=== PATIENT | male | born 1985 | race Caucasian/White ===

== ENCOUNTER 2020-10-26 11:31 | Emergency (ER) | payer OTHER | END 2020-10-26 12:15 | disposition home or self-care (01) | LOC: ER1 11:31 | DX: S61.412A Laceration without foreign body of left hand, initial encounter (principal); W26.8XXA Contact with other sharp object(s), not elsewhere classified, initial encounter | CPT/HCPCS: 12001; 90715; 99283 ==

== ENCOUNTER 2020-11-28 13:47 | Emergency (ER) | payer OTHER ==
[~2020-11-28] VITALS: Ht 175.3 cm; Wt 149.7 kg
[2020-11-28 14:45] LABS: HEMOGLOBIN 15.2 gm/dl (14.0-17.5); RED BLOOD COUNT 5.52 M/UL (4.20-5.50); WHITE BLOOD COUNT 4.8 K/UL (4.5-11.0)
[2020-11-28 15:16] LABS: BUN/CREATININE RATIO 8 (0-10)
== END 2020-11-28 19:00 | disposition home or self-care (01) ==
LOC: ER1 13:47
PROVIDERS: Emergency Medicine
DX: Z23 Encounter for immunization (principal); U07.1 COVID-19
CPT/HCPCS: 71045; 80053; 85025; 85379; 99284; M0243; Q9967

== ENCOUNTER 2021-03-15 05:08 | Emergency (ER) | payer OTHER ==
[2021-03-15 06:34] LABS: HEMOGLOBIN 14.5 gm/dl (14.0-17.5); RED BLOOD COUNT 5.05 M/UL (4.20-5.50); WHITE BLOOD COUNT 6.4 K/UL (4.5-11.0)
[2021-03-15 07:10] LABS: BUN/CREATININE RATIO 12 (0-10)
[2021-03-15] MEDS ORDERED: DOXYCYCLINE HY100 M2 PO (10:03)
== END 2021-03-15 10:07 | disposition home or self-care (01) ==
LOC: ER1 05:08
PROVIDERS: Family Medicine
DX: N45.3 Epididymo-orchitis (principal)
CPT/HCPCS: 76870; 80053; 80307; 81001; 83690; 85025; 87040; 87086; 96374; 96375; 99284; J0696; J1885; J7030

== ENCOUNTER 2021-09-08 14:22 | Emergency (ER) | payer OTHER ==
[~2021-09-08 14:22] MED LIST: DOXYCYCLINE HY100 M2 PO
[2021-09-08 14:53] LABS: HEMOGLOBIN 15.5 gm/dl (14.0-17.5); RED BLOOD COUNT 5.38 M/UL (4.20-5.50); WHITE BLOOD COUNT 7.5 K/UL (4.5-11.0)
[2021-09-08 15:33] LABS: BUN/CREATININE RATIO 9 (0-10)
== END 2021-09-08 18:36 | disposition home or self-care (01) ==
LOC: ER1 14:22
DX: M25.511 Pain in right shoulder (principal); M54.2 Cervicalgia
CPT/HCPCS: 71045; 80053; 82550; 82553; 84484; 85025; 93005; 99284